=== PATIENT | male | born 1985 | race African-American/Black ===

== ENCOUNTER 2020-01-18 21:35 | Emergency (ER) | payer SELFPAY ==
[~2020-01-18] VITALS: Ht 188 cm; Wt 98.9 kg
[2020-01-18] MEDS ORDERED: BACTRIM DS TAB1 EACH PO (21:57)
[2020-01-18] MEDS ORDERED: SILVADENE20 GM TOP (21:59)
== END 2020-01-18 22:20 | disposition home or self-care (01) ==
LOC: FSED 21:45
DX: T23.211A Burn of second degree of right thumb (nail), initial encounter (principal); L03.011 Cellulitis of right finger; X17.XXXA Contact with hot engines, machinery and tools, initial encounter
CPT/HCPCS: 99282